=== PATIENT | male | born 1995 | race American Indian/Alaskan Native ===

== ENCOUNTER 2022-03-04 13:22 | Emergency (ER) | payer BC, OTHER ==
[~2022-03-04] VITALS: Ht 180.3 cm; Wt 72.6 kg
[2022-03-04] MEDS ORDERED: BACLOFEN (13:36)
[2022-03-04] MEDS ORDERED: GABAPENTIN (13:36)
[2022-03-04] MEDS ORDERED: SERT50TA14 (13:36)
[2022-03-04] MEDS ORDERED: PENICILLIN G BENZATHINE 2.4 MMU/4 ML DISP.SYRIN IM STA (13:39)
[2022-03-04] MEDS ORDERED: PENICILLIN G BENZATHINE 2.4 MMU/4 ML DISP.SYRIN IM ONE (13:50)
== END 2022-03-04 15:03 | disposition home or self-care (01) ==
LOC: ER 13:22
DX: A53.9 Syphilis, unspecified (principal); R03.0 Elevated blood-pressure reading, without diagnosis of hypertension; Z88.1 Allergy status to other antibiotic agents; Z86.79 Personal history of other diseases of the circulatory system
CPT/HCPCS: 99283; 96372; J0561; A4663